=== PATIENT | female | born 1985 | race Caucasian/White ===

== ENCOUNTER → 2020-09-29 08:41 | Outpatient (CLI) | payer OTHER, SELFPAY ==
--- NOTE | 2020-09-29 | DI.MRI.S_ITS ---
PROCEDURE: MR SHOULDER RT WO CON INDICATIONS: Pain in unspecified shoulder TECHNIQUE: Noncontrast oblique coronal T2 fast spin echo with fat saturation, oblique sagittal T1 spin echo and T2 fast spin echo with fat saturation, axial T1 spin echo and T2 fast spin echo with fat saturation through the shoulder. COMPARISON: None. FINDINGS: Image quality: Excellent. Rotator cuff: There is mild supraspinatus and subscapularis tendinosis. The infraspinatus and teres minor tendons are intact. There is no significant rotator cuff muscle atrophy. Bones and bursae: No acute bone marrow contusions or fractures. Small chronic traction cystic changes are seen at the posterosuperior humeral head near the infraspinatus tendon insertion. There is mild acromioclavicular joint osteoarthrosis. There is no significant glenohumeral joint effusion. No pathologic subacromial-subdeltoid or subcoracoid bursal fluid is present. Capsule and soft tissues: There is probable nondisplaced tearing of the posterosuperior labrum (image 14 of series 8 and image 9 of series 6). The remainder of the labrum appears to be intact in the absence of intra-articular contrast material. The long head of the biceps tendon demonstrates normal location and morphology. There is partial effacement of the normal fat in the rotator interval. The middle glenohumeral ligament appears thickened with possible mild thickening of the anterior band of the inferior glenohumeral ligament. IMPRESSION: 1. Probable nondisplaced tearing of the posterosuperior labrum. MR arthrogram may be obtained for confirmation if clinically indicated. 2. Mild supraspinatus and subscapularis tendinosis without a significant rotator cuff tendon tear. 3. Partial effacement of the rotator interval fat and mild thickening of the middle and likely inferior glenohumeral ligaments are nonspecific, but can be seen in the setting of the clinical syndrome of adhesive capsulitis. Dictated by: Pop Betancourt M.D. on 09/29/2020 at 9:29 Approved by: Pop Betancourt M.D. on 09/29/2020 at 9:41
== END ==
PROVIDERS: Referring Provider Student in an Organized Health Care Education/Training Program; Visit Provider Student in an Organized Health Care Education/Training Program
DX: M25.511 Pain in right shoulder (principal)
CPT/HCPCS: 73221

== ENCOUNTER → 2020-12-20 09:11 | Outpatient (CLI) | payer OTHER, SELFPAY ==
--- NOTE | 2020-12-20 09:13 | DI.RAD.S_ITS ---
PROCEDURE: FL SHOULDER INJECTION MR/CT RT INDICATIONS: Pain in right shoulder COMPARISON: None. TECHNIQUE: The indications, alternatives, benefits, risks, and complications of the procedure were explained to the patient. Written informed consent was obtained and placed in the chart. The shoulder was examined fluoroscopically and a site for needle placement chosen for entry into the glenohumeral joint from an anterior approach. The skin was prepped and draped in a sterile fashion, and 1% lidocaine infiltrated from skin down to joint capsule. A spinal needle was inserted into the glenohumeral joint, and a small amount of iodinated contrast media injected to confirm intra-articular placement of the needle tip. This was followed by approximately 12 mL dilute solution of a gadolinium containing MR contrast agent. The needle was removed and a dressing was applied. The patient was given postprocedural instructions and sent to the MR suite for MR imaging. FINDINGS: A single fluoroscopic spot image demonstrates intra-articular location of injected iodinated contrast. IMPRESSION: Successful fluoroscopically guided administration of dilute Gadolinium solution into the shoulder joint for MR arthrogram. Dictated by: Tony Alonso M.D. on 12/20/2020 at 10:53 Approved by: Tony Alonso M.D. on 12/20/2020 at 10:54
--- NOTE | 2020-12-20 09:13 | DI.MRI.S_ITS ---
PROCEDURE: MR SHOULDER RT W CON INDICATIONS: Pain in right shoulder TECHNIQUE: After the administration of 12 mL of dilute intra-articular Gadolinium contrast, oblique coronal T1 and T2 spin echo with fat saturation, oblique sagittal T1 spin echo with and without fat saturation, oblique sagittal T2 fast spin echo with fat saturation, axial T1 spin echo with fat saturation through the shoulder. COMPARISON: [facility], MR, MR SHOULDER RT WO CON, 09/29/2020, 8:51. FINDINGS: Rotator cuff: Small articular sided partial thickness tear at the junction of the supraspinatus and infraspinatus tendons measures 2 mm on sagittal pulse sequences, and probably less than 50% of tendon thickness. Teres minor appears intact. Subscapularis tendon appears intact. No atrophy of the rotator cuff muscles. Bones and bursae: No bone marrow contusions or fractures. Mild AC joint degeneration. Acromion demonstrates conventional anatomy, without an os acromiale. Minimal subacromial-subdeltoid bursitis. Capsule and soft tissues: Labrum: Incidentally noted Marissa complex anatomic variance is seen. There is mild fraying of the superior labrum. There is also fraying of the posterosuperior labrum with amorphous intermediate signal change. No definite intrasubstance gadolinium signal intensity seen within the labrum. Long head of the biceps tendon intact. The rotator interval appears normal, without fibrosis. Coracohumeral ligament intact. IMPRESSION: Small partial thickness articular sided tear of the junction of the supraspinatus and infraspinatus tendons as above. This is much more conspicuous compared to the prior study from 09/29/20 probably due to arthrographic technique. Minimal subacromial-subdeltoid bursitis Mild amorphous and intermediate signal changes involving the posterosuperior labral segment. This suggests greater than expected degeneration/fraying or possibly sequela of remote tear. This correlates to the appearance from 09/29/20 comparison study. No posterior subluxed appearance of the humeral head relative to the glenoid to suggest the possibility of microinstability. Dictated by: Mikey Shi M.D. on 12/20/2020 at 11:00 Approved by: Mikey Shi M.D. on 12/20/2020 at 11:14
== END ==
PROVIDERS: PCP Orthopaedic Surgery; Referring Provider Orthopaedic Surgery; Visit Provider Orthopaedic Surgery
DX: M25.511 Pain in right shoulder (principal); M75.111 Incomplete rotator cuff tear or rupture of right shoulder, not specified as traumatic
CPT/HCPCS: 23350; 73222; 77002